=== PATIENT | male | born 1985 | race Caucasian/White ===

== ENCOUNTER 2020-10-26 11:58 | Emergency (ER) | payer OTHER ==
[~2020-10-26] VITALS: Ht 170.2 cm; Wt 104.3 kg
[2020-10-26 12:11] VITALS: Ht 170.2 cm; Wt 104.3 kg
[2020-10-26 13:26] VITALS: BP 149/89
== END 2020-10-26 13:26 | disposition home or self-care (01) ==
LOC: ED 11:58
DX: K42.9 Umbilical hernia without obstruction or gangrene (principal)